=== PATIENT | male | born 1955 | race Caucasian/White ===

== ENCOUNTER 2022-05-07 13:10 | Outpatient (CLI) | payer MEDICARE, SELFPAY ==
[2022-05-07 14:33] LABS: D Dimer >= 20.00 ug/mIFEU (0-0.59)
== END 2022-05-07 13:11 | disposition home or self-care (01) ==
PROVIDERS: Visit Provider Family Medicine
DX: R06.09 Other forms of dyspnea (principal)
CPT/HCPCS: 85378

== ENCOUNTER 2022-05-07 14:01 | Emergency (ER) | payer MEDICARE, SELFPAY ==
[2022-05-07] VITALS (14 sets, daily range): BP systolic 90–139; BP diastolic 69–113; PULSE 72–123; RESP 14–26; TEMP 36.6–36.7; O2SAT 83–97
--- NOTE | 2022-05-07 14:09 | ECG_ITS ---
[facility] Test Date: 2022-05-07 Pat Name: Morales Yen Department: Room: Gender: Male Lead Enterprise Architect: : 1955 Requested By: Beau Nevarez Order Number: [id number] Christiana MD: Ozzy Willingham M.D. Measurements Intervals [place] Rate: 137 P: 0 AL: 0 QRS: 37 QRSD: 93 T: 30 QT: 299 QTc: 453 Interpretive Statements ATRIAL FIBRILLATION WITH RAPID VENTRICULAR RESPONSE NONSPECIFIC ST & T-WAVE ABNORMALITY ABNORMAL RHYTHM ECG No previous ECG available for comparison Electronically Signed On 05-07-2022 14:38:42 RETAIL WAREHOUSE ASSOCIATE by Ozzy Willingham M.D. [id number]
--- NOTE | 2022-05-07 14:20 | ECG_ITS ---
[facility] Test Date: 2022-05-07 Pat Name: Morales Yen Department: Room: Gender: Male Programs Director: : 1955 Requested By: John Martell Order Number: [id number] Christiana MD: Nithin Ferguson M.D. Measurements Intervals [place] Rate: 97 P: 56 SC: 187 QRS: 48 QRSD: 93 T: 21 QT: 361 QTc: 459 Interpretive Statements SINUS RHYTHM Compared to ECG 05/07/2022 14:11:29 Atrial fibrillation no longer present T-wave abnormality no longer present Electronically Signed On 05-07-2022 17:46:24 DRIER UNLOADER by Nithin Ferguson M.D. [email or web address]/[id number] f
--- NOTE | 2022-05-07 14:23 | XRR_ITS ---
PROCEDURE INFORMATION: Exam: XR Chest Exam date and time: 05/07/2022 2:26 PM Age: 66 years old Clinical indication: Dyspnea and shortness of breath; Additional info: Dyspnea; Chest pain TECHNIQUE: Imaging protocol: Radiologic exam of the chest. Views: 1 view. COMPARISON: No relevant prior studies available. FINDINGS: Lungs: Lungs are clear. Pleural spaces: There is no pleural effusion or pneumothorax. Heart/Mediastinum: Cardiomediastinal contours are unremarkable. There is a retrocardiac mass in the midline consistent with a hiatal hernia. Bones/joints: Bones are unremarkable. XR/XR chest 1V portable [id number] IMPRESSION: 1. No acute findings. 2. Hiatal hernia.
--- NOTE | 2022-05-07 14:24 | W.ED.SOB ---
HPI - SOB/Dyspnea General: Chief Complaint: Shortness of Breath/Dyspnea Stated Complaint: Afib Time Seen by Provider: 05/07/22 14:15 Source: patient and family Mode of arrival: wheelchair Limitations: no limitations History of Present Illness: HPI Narrative: See nursing assessment. Patient started having dyspnea on exertion with palpitations and tachycardia around 9:00 this morning. Patient states he had some mild chest tightness as well. States has had a cough this been nonproductive for 60 days and has been taking [place] plus and NyQuil to 3 times a day. Patient denies any fever. Denies any previous cardiac history or arrhythmia in the in the past. Does have a history of essential hypertension and GERD. He does take metoprolol unknown dose daily. He takes omeprazole daily as well. States he had no [place] today. Denies any allergies to medications. His primary care physician is Dr. Van. He presents with dyspnea on exertion and mild chest tightness. Telemetry shows atrial fibrillation with rapid ventricular rate. Patient had spontaneous conversion to normal sinus rhythm in the ER. Associated symptoms: Reports chest pain and palpitations; Deny abdominal pain, fever(s), nausea or vomiting Review of Systems Const: Denies: fever(s) or chills Eyes: Denies: change in vision ENMT: Denies: throat pain Card: Reports: chest pain, palpitations and dyspnea on exertion Resp: Reports: dyspnea and non-productive cough; Denies: wheezing or stridor GI: Denies: abdominal pain, nausea or vomiting : Denies: flank pain Musc: Denies: neck pain or back pain Skin/Breast: Denies: rash or pruritus Neuro: Denies: headache(s) or numbness in extremities Psych: Denies: anxiety Oswaldo/Lymph: Denies: enlarged lymph nodes PFSH ED Supplemental PFSH Information: Denies previous cardiac history or arrhythmia. Patient does have possible history of essential hypertension and GERD. Physical Exam Const: COMMON NORMALS: no acute distress, patient oriented x3, no limitations and well nourished GENERAL APPEARANCE: cooperative HENMT: COMMON NORMALS: normocephalic and atraumatic HEAD & SCALP: normocephalic and atraumatic FACE & SINUS: normal facial exam Eye: COMMON NORMALS: EOMs intact bilaterally Neck/C-Spine: COMMON NORMALS: full ROM, no lymphadenopathy, supple and no meningeal signs GENERAL: Yes normal visual inspection Lymph: LYMPHATIC: no lymphadenopathy noted Chest: COMMONS NORMALS: normal inspection of the chest and normal palpation of entire chest wall CHEST: No Ecchymosis present and No rash Resp: COMMON NORMALS: normal respiratory effort, No retractions and clear to auscultation bilaterally EFFORT & INSPECTION: No respiratory distress AUSCULTATION: clear to auscultation bilaterally OTHER: Patient does have occasional nonproductive cough. Lungs are clear. No stridor. Cardio: COMMON NORMALS: regular rate, regular rhythm and Peripheral pulses 2+ throughout JUGULAR VENOUS DISTENTION: no JVD RATE: regular rate RHYTHM: regular rhythm PERIPHERAL PULSES: Peripheral pulses 2+ throughout OTHER: Upon my initial exam patient had already converted to normal sinus rhythm. Heart rate is normal. Peripheral pulses are normal. No clubbing cyanosis or edema. GI: COMMON NORMALS: Normal to inspection, nondistended, normoactive bowel sounds present and non-tender Extremity: COMMON NORMALS: normal to inspection, full ROM and capillary refill normal Neuro: COMMON NORMALS: patient oriented x3, CN's II-XII intact bilaterally, no focal motor deficits and no sensory deficits noted MENINGEAL SIGNS: Yes no meningeal signs Psych: COMMON NORMALS: mental status grossly normal and Normal thought process present THOUGHT PROCESS: Normal thought process present Skin: COMMON NORMALS: no rashes or lesions noted and no wounds GENERAL SKIN EXAM: no rashes or lesions noted Course Vital Signs: Vital signs: Vital Signs Temperature 97.9 F 05/07/22 14:06 Pulse Rate 76 05/07/22 19:00 Respiratory Rate 14 05/07/22 19:00 Blood Pressure 116/88 05/07/22 19:00 Pulse Oximetry 95 05/07/22 19:00 MDM - SOB/Dyspnea Medical Decision Making Intermittent new onset atrial fibrillation. 1305: Patient had another episode of atrial fibrillation with heart rate in the 120s. Patient then converted spontaneously back to normal sinus rhythm with heart rate in the 90s. Patient is already on metoprolol p.o. Will give Lanoxin IV. Troponin was high. Therefore, will place patient on heparin drip. 1500: Discussed case with Dr. Yen primary care physician. He states that he did lab work in the office including a negative COVID swab. He states the D-dimer test came back greater than [address] today[address] He request that [address] angiogram of the chest to be done to rule out PE. Patient states he has never had any IV contrast before he denies any allergies to iodine. Patient requested transfer to [facility] if available. He states he is happy going to [facility] if available also. [facility] was full and had a 2-day wait. Contacted [facility]. Will await availability. 1811: Discussed case with orthopedic brace maker at [facility] in [place]. Dr. Gupta accepted patient in transfer. Bed has been assigned at [facility]. Patient will be transferred emergently there. Lab Data 05/07/22 14:25 05/07/22 14:25 Labs/Radiology: Radiology Impressions Chest X-Ray 05/07/22 14: IMPRESSION: 1. No acute findings. 2. Hiatal hernia. Chest CTA 05/07/22 15:19 IMPRESSION: 1. Subtle embolism. Large pulmonary embolic burden, greatest into the RIGHT pulmonary arteries. 2. RIGHT heart strain. 3. Ill-defined nodule RIGHT upper lobe measures 10 mm. Differential includes early neoplasm, pneumonitis or infarct. Recommend follow-up chest CT in 3 months with IV contrast. 4. Large hiatal hernia. 5. Hepatic cysts. ADDENDUM: 05/07/22 1620 IMPRESSION: 1. SADDLE embolism. Large pulmonary embolic burden, greatest into the RIGHT pulmonary arteries. Laboratory Results WBC 8.2 10^3/uL (4.0-10.0) 05/07/22 14:25 RBC 5.45 10^6/uL (4.1-5.3) H 05/07/22 14:25 Hgb 14.8 g/dL (11.7-16.6) 05/07/22 14:25 Hct 45.4 % (42.0-52.0) 05/07/22 14: MCV 83.3 fl (80-94) 05/07/22 14:25 MCH 27.2 pg (28.0-34.0) L 05/07/22 14:25 MCHC 32.6 g/dL (30.0-36.0) 05/07/22 14: RDW 13.5 % (12.1-15.1) 05/07/22 14: Plt Count 264 10^3/cmm (130-400) 05/07/22 14:25 MPV 9.3 fL (7.4-10.4) 05/07/22 14:25 Neut % (Auto) 73.8 % 05/07/22 14:25 Lymph % (Auto) 16.9 % 05/07/22 14:25 [place] % (Auto) 7.0 % 05/07/22 14:25 Eos % (Auto) 0.9 % 05/07/22 14:25 Baso % (Auto) 0.9 % 05/07/22 14:25 Neut # (Auto) 6.05 10^3/uL (1.8-7.7) 05/07/22 14:25 Lymph # (Auto) 1.4 10^3/uL (0.8-4.8) 05/07/22 14:25 [place] # (Auto) 0.6 10^3/uL (0.2-0.9) 05/07/22 14:25 Eos # (Auto) 0.1 10^3/uL (0.0-0.8) 05/07/22 14:25 Baso # (Auto) 0.1 10^3/uL (0.0-0.1) 05/07/22 14:25 Nucleated RBC % (auto) 0 % 05/07/22 14:25 Nucleated RBCs # 0.0 /100WBC 05/07/22 14:25 APTT 25.9 SECONDS (23.9-36.7) 05/07/22 14:25 Sodium 136 mmol/L (136-145) 05/07/22 14:25 Potassium 4.2 mmol/L (3.5-5.1) 05/07/22 14:25 Chloride 99 mmol/L (98-107) 05/07/22 14:25 Carbon Dioxide 23 mmol/L (22-29) 05/07/22 14:25 Anion Gap 18.2 (5-19) 05/07/22 14:25 BUN 22 mg/dL (8-23) 05/07/22 14:25 Creatinine 1.2 mg/dL (0.7-1.2) 05/07/22 14:25 GFR Calculation 60.8 mL/min (90-130) L 05/07/22 14:25 Glucose 107 mg/dL (65-115) 05/07/22 14:25 Calculated Osmolality 286 mOsm/kg (285-295) 05/07/22 14:25 Calcium 9.5 mg/dL (8.5-10.5) 05/07/22 14:25 Magnesium 2.0 mg/dL (1.7-2.3) 05/07/22 14:25 Troponin T Baseline 216 ng/L (0-15) H* 05/07/22 14:25 Troponin T 120 Minute 156.3 ng/L (0-15) H 05/07/22 17:08 Delta Troponin T -59.7 ABS# (0-10) L 05/07/22 17:08 Imaging Data CXR: My impression: Nothing acute. No infiltrates, effusions, pneumothorax, or free air under the diaphragm. CTA Chest: Radiologist's impression: According to radiologist, patient has large pulmonary emboli including saddle embolus and possible pulmonary infarct on the right. EKG Data EKG 1: I personally reviewed and interpreted this EKG as follows: EKG Interpretation Date: 05/07/22 EKG interpretation time: 14:13 Prior EKG tracings: available for review (Unchanged from clinic EKG at 1251 today.) Interpretation: Initial EKG shows atrial fibrillation with rapid ventricular response with a heart rate of 137. Normal axis. Normal QRS. Nonspecific ST-T changes throughout. Normal T waves. Unchanged from EKG at the clinic at 1251 today. EKG 2: I personally reviewed and interpreted this EKG as follows: EKG Interpretation Date: 05/07/22 EKG interpretation time: 14:20 Prior EKG tracings: available for review Interpretation: Impression normal sinus rhythm heart rate 97. Normal axis. Normal TN interval, normal QT interval, normal P waves, normal T waves, normal ST segment. Normal axis. Normal ST segments. Normal EKG. Patient converted from atrial fibrillation to normal sinus rhythm from previous EKG. EKG 3: I personally reviewed and interpreted this EKG as follows: EKG Interpretation Date: 05/07/22 EKG interpretation time: 16:48 Prior EKG tracings: available for review Interpretation: Impression normal sinus rhythm heart rate 77. Normal QRS, normal axis, normal TN interval, normal QT interval, normal ST segment. Normal P waves, normal T waves. Normal EKG. Discharge Plan Discharge Patient Disposition: Xfer Short-Term Hosp Clinical Impression: Paroxysmal atrial fibrillation with rapid ventricular response, Non-STEMI (non-ST elevated myocardial infarction), Pulmonary embolism and infarction, Acute saddle pulmonary embolism with acute cor pulmonale Condition: Stable Discharge Diet: Advance as tolerated Coding Level of Care Code ED Pipe Fitter Helper for Myra Avila
[2022-05-07 14:38] LABS: Basophils # 0.1 10^3/uL (0.0-0.1); Basophils % 0.9 %; Eosinophils # 0.1 10^3/uL (0.0-0.8); Eosinophils % 0.9 %; Hematocrit 45.4 % (42.0-52.0); Hemoglobin 14.8 g/dL (11.7-16.6); Lymphocytes # 1.4 10^3/uL (0.8-4.8); Lymphocytes % 16.9 %; Mean Corpuscular HGB Conc 32.6 g/dL (30.0-36.0); Mean Corpuscular Hemoglobin 27.2 pg (28.0-34.0); Mean Corpuscular Volume 83.3 fl (80-94); Mean Platelet Volume 9.3 fL (7.4-10.4); Monocytes # 0.6 10^3/uL (0.2-0.9); Neutrophils # 6.05 10^3/uL (1.8-7.7); Neutrophils % 73.8 %; Nucleated Red Blood Cells % 0 %; Platelet Count 264 10^3/cmm (130-400); Red Blood Count 5.45 10^6/uL (4.1-5.3); Red Cell Distribution Width 13.5 % (12.1-15.1); White Blood Count 8.2 10^3/uL (4.0-10.0)
[2022-05-07] MEDS: aspirin 81 mg Chew Tablet 324 MG PO (14:43)
[2022-05-07 14:54] LABS: Partial Thromboplastin Time 25.9 SECONDS (23.9-36.7)
[2022-05-07 15:01] LABS: Anion Gap 18.2 (5-19); Blood Urea Nitrogen 22 mg/dL (8-23); Calcium 9.5 mg/dL (8.5-10.5); Carbon Dioxide 23 mmol/L (22-29); Chloride 99 mmol/L (98-107); Glomerular Filtration Rate 60.8 mL/min (90-130); Glucose 107 mg/dL (65-115); Osmolality Calculated 286 mOsm/kg (285-295); Potassium 4.2 mmol/L (3.5-5.1); Sodium 136 mmol/L (136-145)
[2022-05-07 15:07] LABS: Troponin(5th) Baseline 216 ng/L (0-15)
--- NOTE | 2022-05-07 15:19 | CT_ITS ---
WS: [id number] CT CHEST ANGIOGRAPHY WITH REFORMATS HISTORY: shortness of breath; neg covid; ddimer >20 TECHNIQUE: Contiguous axial images are obtained through the chest during arterial injection of intrav enous contrast. Images are reconstructed to evaluate the pulmonary arteries. MIP imaging also reviewe d. All CT scans at [facility] use at least one of these dose optimization techniques: automat ed exposure control; mA and/or kV adjustment per patient size (includes targeted exams where dose is matched to clinical indication); or iterative reconstruction. CONTRAST: Omnipaque 350; 83 mL IV. DLP: 422.36 mGy.cm COMPARISON: None available. There is a very large amount of emboli identified in the pulmonary artery. There is extensive clot ex tending into the lower lobe arteries bilaterally, greatest on the RIGHT. There is a additional emboli extending into the upper lobes bilaterally. Small amount of emboli in the RIGHT middle lobe. There i s significant RIGHT heart strain. RIGHT ventricle is larger than the LEFT with mild tricuspid regurgi tation into the IVC. Normal size aorta with mild plaque. 10 mm ill-defined nodule RIGHT upper lobe. Very small pleural thickening RIGHT middle lobe. No pleura l or pericardial effusions. There is a very large hiatal hernia. No mediastinal adenopathy. Low-attenuation masses in the liver with the largest measuring 2.4 x 2.1 cm are probably cysts. No ad renal mass. No destructive bone lesions. CT/CT angio chest PE protcl [id number] IMPRESSION: 1. Subtle embolism. Large pulmonary embolic burden, greatest into the RIGHT pu lmonary arteries. 2. RIGHT heart strain. 3. Ill-defined nodule RIGHT upper lobe measures 10 mm. Differential includes e ailyn neoplasm, pneumonitis or infarct. Recommend follow-up chest CT in 3 months with IV contrast. 4. Large hiatal hernia. 5. Hepatic cysts.
[2022-05-07] MEDS: digoxin 250 mcg/ml INJ 2 mL IVP (15:24)
[2022-05-07] MEDS: heparin 5,000 unit/mL INJ 1 mL 4000 UNIT IVP (15:25)
[2022-05-07] MEDS: heparin drip 25,000 UNIT/500 ML PREMIX 29.21 UNIT IV (16:00)
--- NOTE | 2022-05-07 16:23 | ECG_ITS ---
[facility] Test Date: 2022-05-07 Pat Name: Morales Yen Department: Room: Gender: Male Foreign Languages Professor: : 1955 Requested By: John Martell Order Number: [id number] Christiana MD: Nithin Ferguson M.D. Measurements Intervals [place] Rate: 77 P: 52 [place]: 187 QRS: 52 QRSD: 93 T: 18 QT: 372 QTc: 423 Interpretive Statements SINUS RHYTHM Compared to ECG 05/07/2022 14:11:29 Atrial fibrillation no longer present T-wave abnormality no longer present Electronically Signed On 05-07-2022 17:46:40 LINE COOK by Nithin Ferguson M.D. [id number]
[2022-05-07 17:37] LABS: Troponin 5 2HR 156.3 ng/L (0-15)
== END 2022-05-07 20:15 | disposition short-term general hospital (02) ==
PROVIDERS: Emergency Provider Family Medicine
DX: I21.4 Non-ST elevation (NSTEMI) myocardial infarction (principal); I48.0 Paroxysmal atrial fibrillation; I26.02 Saddle embolus of pulmonary artery with acute cor pulmonale; R06.09 Other forms of dyspnea; R00.2 Palpitations
CPT/HCPCS: 71045; 71275; 80048; 83735; 84484; 85025; 85378; 85730; 93005; 96374; 96375; 99285; J1160; J1644